=== PATIENT | male | born 1970 | race Caucasian/White ===

== ENCOUNTER 2025-05-28 06:19 | Day surgery (SDC) | payer OTHER, SELFPAY | END 2025-05-28 10:09 | disposition home or self-care (01) | LOC: GI 06:19 | PROVIDERS: ATTENDING PHYSICIAN Surgery | DX: Z12.11 Encounter for screening for malignant neoplasm of colon (principal); K57.30 Diverticulosis of large intestine without perforation or abscess without bleeding; Z86.0100 Personal history of colon polyps, unspecified; Z80.0 Family history of malignant neoplasm of digestive organs | CPT/HCPCS: G0105 ==